=== PATIENT | male | born 1975 | race African-American/Black ===

== ENCOUNTER 2017-02-12 17:05 | Emergency (ER) | payer OTHER ==
[~2017-02-12] VITALS: Ht 177.8 cm; Wt 77.1 kg
[2017-02-12 17:06] VITALS: BP 129/80
[2017-02-12] MEDS ORDERED: HYDROCHLOROTHIA25 M2 PO (17:10)
[2017-02-12] MEDS ORDERED: LISINOPRIL20 MG PO (17:11)
[2017-02-12] MEDS ORDERED: SIMVASTATIN40 MG PO (17:11)
[2017-02-12] MEDS ORDERED: CHILDREN'S ASPI81 M1 PO (17:11)
== END 2017-02-12 17:20 | disposition home or self-care (01) ==
LOC: ER 17:05
DX: T67.9XXA Effect of heat and light, unspecified, initial encounter (principal); X58.XXXA Exposure to other specified factors, initial encounter; Y93.89 Activity, other specified; Y92.89 Other specified places as the place of occurrence of the external cause; Y99.8 Other external cause status